=== PATIENT | female | born 1950 | race Caucasian/White ===

== ENCOUNTER 2021-10-23 10:15 | Outpatient (CLI) | payer MEDICARE | END 2021-10-23 10:16 | disposition home or self-care (01) | LOC: CSHCT 10:15 | PROVIDERS: ATTEND Otolaryngology Plastic Surgery within the Head & Neck | DX: H90.3 Sensorineural hearing loss, bilateral (principal); H74.8X3 Other specified disorders of middle ear and mastoid, bilateral | CPT/HCPCS: 70480 ==

== ENCOUNTER 2021-11-24 07:44 | Day surgery (SDC) | payer MEDICARE ==
[2021-11-22 11:21] VITALS: BMI 29.0
[2021-11-24] MEDS ORDERED: EPINEPHrine 1 MG/ML AMP ONE (10:04)
[2021-11-24] MEDS ORDERED: Mupirocin 2% Ointment 22 GM Tube ONE (10:04)
[2021-11-24] MEDS ORDERED: Midazolam HCl 2 mg/2 ml Vial ONE ×2 (10:06→10:19)
[2021-11-24] MEDS ORDERED: PROPOFOL 20 ML ONE (10:19)
[2021-11-24] MEDS ORDERED: Ondansetron PF 4 MG/2 ML Vial ONE (10:19)
[2021-11-24] MEDS ORDERED: Fentanyl 250 MCG/5 ML VIAL ONE (10:19)
[2021-11-24] MEDS ORDERED: Lidocaine 1% PF 5 ML VIAL ONE (10:19)
[2021-11-24] MEDS ORDERED: Rocuronium Bromide 10 MG/ML (10ML VIAL) ONE (10:19)
[2021-11-24] MEDS ORDERED: ceFAZolin Sodium 1 GM/Dextrose 50 ML BAG ONE (10:33)
[2021-11-24] MEDS ORDERED: Lidocaine 1% w/Epinephrine 1:100K 20 ML VIAL ONE (10:33)
[2021-11-24] MEDS ORDERED: HYDROcodone/Acetaminophen 5/325 mg Tablet ONE (13:35)
== END 2021-11-24 14:35 | disposition home or self-care (01) ==
LOC: CSHSDC 07:44
PROVIDERS: ATTEND Otolaryngology Plastic Surgery within the Head & Neck
PROC: 09H Ear, Nose, Sinus, Insertion (ICD-10-PCS; principal; 2021-11-24)
DX: H90.3 Sensorineural hearing loss, bilateral (principal)
CPT/HCPCS: 69930; 70250; L8614 ×2; J0171; J0690; J2250; J2405; J2704; J3010; Q9968